=== PATIENT | male | born 1980 | race Two or more races ===

== ENCOUNTER 2021-02-14 06:20 | Emergency (ER) | payer MEDICAID ==
[~2021-02-14] VITALS: Ht 165.1 cm; Wt 88.0 kg
[2021-02-14 07:21] VITALS: BP 130/93
[2021-02-14] MEDS ORDERED: CARBAMIDE PEROXIDE 6.5% OTIC SOLN 15ML RIGHT EAR ONE (07:45)
[2021-02-14] MEDS ORDERED: OFLO5DRO4 RIGHT EAR (08:53)
== END 2021-02-14 09:30 | disposition home or self-care (01) ==
LOC: ER 06:59
DX: H60.91 Unspecified otitis externa, right ear (principal); H61.21 Impacted cerumen, right ear
CPT/HCPCS: 99283